=== PATIENT | male | born 1985 | race American Indian/Alaskan Native ===

== ENCOUNTER 2016-11-29 17:15 | Emergency (ER) | payer SELFPAY ==
[2016-11-29 17:22] VITALS: BP 113/71
[2016-11-29] MEDS ORDERED: MOTRIN PO ONE (18:40)
--- NOTE | 2016-11-29 18:51 | Emergency Department Report ---
ED General Adult HPI - General Chief complaint: Dental/Oral Stated complaint: TOOTHACHE Time Seen by Provider: 11/29/16 18:39 Source: patient, RN notes reviewed Mode of arrival: Ambulatory Limitations: No Limitations - History of Present Illness Initial comments: This is a 31-year-old male. He is previously unknown to me. He is tobacco user. He presents to the ER with atraumatic dental pain. The pain is on tooth #1, and tooth #16. The pain is achy and sharp. It increases with eating, drinking. No fevers, chills, chest pain, soreness of breath, abdominal pain, nausea, vomiting or diarrhea. No other issues, no other complaints. Patient reports he is visiting from out of town. -: Gradual Location: mouth Quality: aching Consistency: constant Improves with: rest Worsens with: eating Associated Symptoms: denies other symptoms - Related Data Previous Rx's Medication Instructions Recorded Last Taken Type Chlorhexidine Mouthwash [Peridex] 15 ml MM BID #1 bottle 11/29/16 Unknown Rx Ibuprofen [Motrin] 600 mg PO Q8H PRN #30 tablet 11/29/16 Unknown Rx oxyCODONE [Roxicodone] 5 mg PO Q6HR PRN #15 tablet 11/29/16 Unknown Rx Allergies Allergy/AdvReac Type Severity Reaction Status Date / Time Penicillins Allergy Angioedema Verified 11/29/16 17:19 ED Review of Systems ROS: Stated complaint: TOOTHACHE Other details as noted in HPI ED Past Medical Hx - Past Medical History Previous Medical History?: No - Surgical History Past Surgical History?: No - Social History Smoking Status: Never Smoker Substance Use Type: None - Medications Home Medications: Home Medications Medication Instructions Recorded Confirmed Last Taken Type Chlorhexidine Mouthwash [Peridex] 15 ml MM BID #1 bottle 11/29/16 Unknown Rx Ibuprofen [Motrin] 600 mg PO Q8H PRN #30 tablet 11/29/16 Unknown Rx oxyCODONE [Roxicodone] 5 mg PO Q6HR PRN #15 tablet 11/29/16 Unknown Rx ED Physical Exam - General Limitations: No Limitations General appearance: alert, in no apparent distress - Head Head exam: Present: atraumatic, normocephalic - Eye Eye exam: Present: normal appearance, PERRL, EOMI. Absent: nystagmus - ENT ENT exam: Present: normal exam, TM's normal bilaterally, normal external ear exam, other (patient has poor dentition. Dental caries noted in the upper and lower teeth. There is no stridor, dysphonia, trismus or malocclusion. There is no periapical abscess. There is no elevation of the patient the tongue. There is no stridor.) - Neck Neck exam: Present: normal inspection, full ROM. Absent: tenderness, meningismus - Respiratory Respiratory exam: Present: normal lung sounds bilaterally. Absent: respiratory distress, wheezes, rales, rhonchi, stridor, chest wall tenderness, accessory muscle use, decreased breath sounds, prolonged expiratory - Cardiovascular Cardiovascular Exam: Present: regular rate, normal rhythm, normal heart sounds. Absent: bradycardia, tachycardia, irregular rhythm, systolic murmur, diastolic murmur, rubs, gallop - GI/Abdominal GI/Abdominal exam: Present: soft, normal bowel sounds. Absent: distended, tenderness, guarding, rebound, rigid, pulsatile mass - Rectal Rectal exam: Present: deferred - Extremities Exam Extremities exam: Present: normal inspection, full ROM, normal capillary refill. Absent: tenderness, pedal edema, joint swelling, calf tenderness - Back Exam Back exam: Present: normal inspection, full ROM. Absent: tenderness, CVA tenderness (R), CVA tenderness (L), muscle spasm, paraspinal tenderness, vertebral tenderness - Neurological Exam Neurological exam: Present: alert, oriented X3, normal gait, other (Extraocular movements intact. Tongue midline. No facial droop. Facial sensation intact to light touch in the V1, V2, V3 distribution bilaterally. 5 and 5 strength in 4 extremities.. Sensation is intact to light touch in 4 extremities.). Absent : motor sensory deficit - Psychiatric Psychiatric exam: Present: normal affect, normal mood - Skin Skin exam: Present: warm, dry, intact, normal color. Absent: rash ED Course Vital Signs 11/29/16 08 17:19 18:48 Temperature 98.2 F Pulse Rate 98 H Respiratory 16 16 Rate Blood Pressure 113/71 O2 Sat by Pulse 100 Oximetry ED Medical Decision Making - Lab Data Vital Signs 11/29/16 11/29/16 17:19 18:48 Temperature 98.2 F Pulse Rate 98 H Respiratory 16 16 Rate Blood Pressure 113/71 O2 Sat by Pulse 100 Oximetry - Medical Decision Making Differential diagnosis: Dental caries, dentalgia, chronically poor dentition Assessment and plan: 31-year-old male who is tobacco consumer with dental pain. He is afebrile with reassuring vital signs, with no indication of upper airway obstruction or stridor. He needs to follow-up with an outpatient dentist for definitive dental care and management. He is also counseled to discontinue tobacco consumption. He will be discharged at this time with pain medication, chlorhexidine mouthwash, and he is also given listings of low-cost dental clinics. Return precautions are reviewed. Critical care attestation.: If time is entered above; I have spent that time in minutes in the direct care of this critically ill patient, excluding procedure time. ED Disposition Clinical Impression: Dentalgia Disposition: TO HOME OR SELFCARE Is pt being admited?: No Does the pt Need Aspirin: No Condition: Stable Instructions: Dental Caries (ED) Additional Instructions: Take the medications as directed. Follow up with a dentist as soon as possible. Return to the ER right away with fevers, chills, chest pain, shortness of breath, intractable nausea or vomiting, inability to tolerate liquid feeds, inability to speak, or inability to breathe. Prescriptions: Chlorhexidine Mouthwash [Peridex] 15 ml MM BID #1 bottle Ibuprofen [Motrin] 600 mg PO Q8H PRN #30 tablet PRN Reason: Pain oxyCODONE [Roxicodone] 5 mg PO Q6HR PRN #15 tablet PRN Reason: Pain Referrals: [facility] [Outside] - 3-5 Days
== END 2016-11-29 19:00 | disposition home or self-care (01) ==
LOC: ED 17:15
DX: K08.89 Other specified disorders of teeth and supporting structures (principal)
CPT/HCPCS: 99282